=== PATIENT | male | born 1990 | race Caucasian/White ===

== ENCOUNTER 2016-12-13 00:08 | Emergency (ER) | payer OTHER ==
--- NOTE | 2016-12-13 01:06 | ED ORDER SUMMARY ---
..... Patient: CHUNG QURESHI OrderSheet [facility] VisitID: [id number] [place] [address] 26y, M Registration Date/Time: 12/13/2016 ORDER SHEET Weight: 105.2 kg (stated) Allergies: Penicillins GENERAL ORDERS: MEDICATION ORDERS: Clindamycin PO 300 mg (NOW) (01:04 12/13/2016 Rohit BARAJAS) (Ack 1:05 RMarsden R.N.) (1:11 RMarsden R.N.) IV FLUIDS: ORDER SHEET NOTES: [Electronically signed by Katey Leroy (02:06 12/13/2016)] [Electronically signed by Kelly Thayer MD (16:41 12/25/2016)] [Electronically locked/signed by Katey Leroy (02:06 12/13/2016)]
--- NOTE | 2016-12-13 01:06 | ED NURSING NOTES ---
Clinical Report - Nurses [facility] [place] [address] 12/13/2016 0:09 Patient: CHUNG QURESHI TRIAGE 00:17 12/13/16. BP: 160/84. HR: 98 (regular). RR: 18. O2 saturation: 99%. Temp: 98.3 F. Pain level now: 02/28. --00:18 McQuoid, Dafne, ER Tech1 Acuity: LEVEL 3. Chief Complaint: LEFT UPPER TOOTHACHE and SWELLING OF JAW / FACE. SEPSIS SCREEN: Sepsis Screen: negative. Infection suspected/documented. Heart rate greater than 90. AZUL COMA SCORE: Azul Coma Scale: 15- eyes open spontaneously (4); best verbal response- oriented x 4 (5); best motor response- obeys commands (6). --00:25 Katey Leroy. Weight: 105.2 kg stated. Height/Length: 70 inches Per Patient. BMI: 33.3. --00:17 McQuoid, Dafne, ER Tech1. Medications Ibuprofen Oral 800 mg, last dose 1899. --00:17 McQuoid, Dafne, ER Tech1. Allergies Penicillins. --00:17 McQuoid, Dafne, ER Tech1. Medication/allergy information source: the patient. --00:25 Katey Leroy. History Arrived by private vehicle. Historian: patient. Unaccompanied. This started today. ( Patient reports a broken tooth which was a root canal previously. He reports today he began having pain, facial swelling and lymph node pain. Patient reports no dental appointment scheduled yet.). He has no dental appointment scheduled. Reports enlarged lymph nodes. 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 PAST MEDICAL HX: Immunizations: up-to-date. SOCIAL HX: Never smoker. Occasional alcohol use. No drug use. No infectious disease exposure. ABUSE ASSESSMENT: No report of abuse. FALL RISK ASSESSMENT: Fall risk assessment completed. No fall risk identified. NUTRITIONAL RISK ASSESSMENT: The nutritional risk assessment revealed no deficiencies. FUNCTIONAL ASSESSMENT: Functional assessment: no impairments noted. LEARNING NEEDS ASSESSMENT: The learning needs assessment revealed no barriers. SKIN INTEGRITY ASSESSMENT: Skin integrity risk assessment completed. No skin integrity risk identified. --00: Katey Leroy. PROBLEMS: no known problems. ADDITIONAL SURGERIES: no known surgeries. Interventions ID band on patient. To treatment room. --00: Katey Leroy. PHYSICAL ASSESSMENT Ambulatory to room. GENERAL / NEURO / PSYCH: Alert. Oriented X 4. Appears in no acute distress. HEENT: Facial swelling present Left buccal area. Pharynx within normal limits. Dental decay. ( Broken tooth noted). Mucous membranes are pink. RESPIRATORY: Respirations not labored. SKIN: Skin is warm and dry. --00: Katey Leroy. NURSING PROGRESS NOTES Patient c/o left upper dental pain with swelling for 1 day. --00:19 McQuoid, Dafne, ER Tech1 Cold pack applied. Reassurance given to the patient. Two patient identifiers checked. Call light placed in reach. Side rails up x 1. Bed placed in lowest position. Brakes of bed on. Patient ready for evaluation- chart flagged and ED physician notified. --00: Katey Leroy 01:06 12/13/2016 Clindamycin PO Capsules 300 mg given. Allergies verified and confirmed 5 rights. --01:11 Tavia Valdez R.N. DISPOSITION / DISCHARGE 01:10 12/13/16. Discharge instructions provided and reviewed with the patient. Reviewed warnings. Reviewed medication(s). Treatments reviewed. Reviewed referrals. Patient verbalized understanding. Written instructions provided in Maori. The patient was discharged home. He left the Emergency Department ambulatory and via private vehicle. Patient driving. --01:10 Tavia Valdez R.N. 00:17 12/13/16. BP: 160/84. HR: 98 (regular). RR: 18. O2 saturation: 99%. Temp: 98.3 F. Pain level now: 02/28. --01:10 Tavia Valdez R.N. Departure time: :. --01:11 Tavia Valdez R.N. Locked/Released at 12/13/2016 2:06 by Katey Leroy,
--- NOTE | 2016-12-13 01:06 | ED NURSING NOTES ---
Clinical Report - Nurses [facility] [place] [address] 12/13/2016 0:09 Patient: CHUNG QURESHI TRIAGE 00:17 12/13/16. BP: 160/84. HR: 98 (regular). RR: 18. O2 saturation: 99%. Temp: 98.3 F. Pain level now: 02/28. --00:18 McQuoid, Dafne, ER Tech1 Acuity: LEVEL 3. Chief Complaint: LEFT UPPER TOOTHACHE and SWELLING OF JAW / FACE. SEPSIS SCREEN: Sepsis Screen: negative. Infection suspected/documented. Heart rate greater than 90. AZUL COMA SCORE: Azul Coma Scale: 15- eyes open spontaneously (4); best verbal response- oriented x 4 (5); best motor response- obeys commands (6). --00:25 Katey Leroy. Weight: 105.2 kg stated. Height/Length: 70 inches Per Patient. BMI: 33.3. --00:17 McQuoid, Dafne, ER Tech1. Medications Ibuprofen Oral 800 mg, last dose 1899. --00:17 McQuoid, Dafne, ER Tech1. Allergies Penicillins. --00:17 McQuoid, Dafne, ER Tech1. Medication/allergy information source: the patient. --00:25 Katey Leroy. History Arrived by private vehicle. Historian: patient. Unaccompanied. This started today. ( Patient reports a broken tooth which was a root canal previously. He reports today he began having pain, facial swelling and lymph node pain. Patient reports no dental appointment scheduled yet.). He has no dental appointment scheduled. Reports enlarged lymph nodes. 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 PAST MEDICAL HX: Immunizations: up-to-date. SOCIAL HX: Never smoker. Occasional alcohol use. No drug use. No infectious disease exposure. ABUSE ASSESSMENT: No report of abuse. FALL RISK ASSESSMENT: Fall risk assessment completed. No fall risk identified. NUTRITIONAL RISK ASSESSMENT: The nutritional risk assessment revealed no deficiencies. FUNCTIONAL ASSESSMENT: Functional assessment: no impairments noted. LEARNING NEEDS ASSESSMENT: The learning needs assessment revealed no barriers. SKIN INTEGRITY ASSESSMENT: Skin integrity risk assessment completed. No skin integrity risk identified. --00: Katey Leroy. PROBLEMS: no known problems. ADDITIONAL SURGERIES: no known surgeries. Interventions ID band on patient. To treatment room. --00: Katey Leroy. PHYSICAL ASSESSMENT Ambulatory to room. GENERAL / NEURO / PSYCH: Alert. Oriented X 4. Appears in no acute distress. HEENT: Facial swelling present Left buccal area. Pharynx within normal limits. Dental decay. ( Broken tooth noted). Mucous membranes are pink. RESPIRATORY: Respirations not labored. SKIN: Skin is warm and dry. --00: Katey Leroy. NURSING PROGRESS NOTES Patient c/o left upper dental pain with swelling for 1 day. --00:19 McQuoid, Dafne, ER Tech1 Cold pack applied. Reassurance given to the patient. Two patient identifiers checked. Call light placed in reach. Side rails up x 1. Bed placed in lowest position. Brakes of bed on. Patient ready for evaluation- chart flagged and ED physician notified. --00: Katey Leroy 01:06 12/13/2016 Clindamycin PO Capsules 300 mg given. Allergies verified and confirmed 5 rights. --01:11 Tavia Valdez R.N. DISPOSITION / DISCHARGE 01:10 12/13/16. Discharge instructions provided and reviewed with the patient. Reviewed warnings. Reviewed medication(s). Treatments reviewed. Reviewed referrals. Patient verbalized understanding. Written instructions provided in Polish. The patient was discharged home. He left the Emergency Department ambulatory and via private vehicle. Patient driving. --01:10 Tavia Valdez R.N. 00:17 12/13/16. BP: 160/84. HR: 98 (regular). RR: 18. O2 saturation: 99%. Temp: 98.3 F. Pain level now: 02/28. --01:10 Tavia Valdez R.N. Departure time: :. --01:11 Tavia Valdez R.N. Locked/Released at 12/13/2016 2:06 by Katey Leroy,
--- NOTE | 2016-12-13 01:06 | ED CLINICAL REPORT ---
Clinical Report - Physicians/Mid Levels [facility] [address] [place] [address] 12/13/2016 0:09 Patient: CHUNG QURESHI Time Seen: 00:20. Arrived- By private vehicle. Historian- patient. HISTORY OF PRESENT ILLNESS Chief Complaint: DENTAL PAIN. This started today and is still present. Pain described as moderate. No sore throat, mouth sores, nasal discharge or congestion or ear pain. No jaw pain. He has had toothache and swelling of the face. Similar symptoms previously: Recent medical care: Not recently seen/assessed. REVIEW OF SYSTEMS No fever, eye discomfort, cough, difficulty breathing or chest pain. No nausea, diarrhea, abdominal pain, difficulty with urination or headache. No fainting episodes, joint pain, skin rash, enlarged lymph nodes or vomiting. All systems otherwise negative, except as recorded above. PAST HISTORY Problems: no known problems. Additional Surgeries: no known surgeries. Medications: Ibuprofen Oral 800 mg, last dose 1900. Allergies: Penicillins. SOCIAL HISTORY Never smoker. Occasional alcohol use. No drug use. ADDITIONAL NOTES The nursing notes have been reviewed. PHYSICAL EXAM Vital Signs: 12/13/2016 00:17 BP: 160/84. HR: 98. RR: 18. O2 saturation: 99%. Temp: 98.3 F. Pain level now: 8/10. Have been reviewed. Appearance: Alert. No acute distress. Head: Moderate swelling of the left maxilla. No facial erythema. No mandibular swelling. Eyes: Pupils equal, round and reactive to light. Conjunctivae and eyelids normal. ENT: Dental decay. Nose normal. Lips normal. (L maxillary gingival tenderness.). Neck: Normal inspection. Trachea midline. No adenopathy. Neck supple. Respiratory: No respiratory distress. Skin: Normal skin color. No rash. Normal skin turgor. Extremities: Extremities exhibit normal ROM. Neuro: (Grossly intact.). LABS, X-RAYS, AND EKG Pulse Oximetry: 12/13/2016 00:17 O2 saturation: 99%. (FIO2 - room air). Interpretation: normal. PROGRESS AND PROCEDURES Course of Care: Pt was given a dose of clindamycin, and we discussed the importance of dental f/u. Patient counseled in person regarding the patient's stable condition, diagnosis and need for follow-up. Concerns were addressed. Old medical records reviewed. Disposition: Discharged. Condition: stable. CLINICAL IMPRESSION Alveolar dental abscess. No Michael's angina. INSTRUCTIONS Drink plenty of fluids. Warnings: Further evaluation is necessary. GENERAL WARNINGS: Return or contact your physician immediately if your condition worsens or changes unexpectedly, if not improving as expected, or if other problems arise. Your Current Medications: CONTINUE TAKING THE FOLLOWING MEDICATIONS: Ibuprofen Oral : 800 mg, Last: 1900. Prescription Medications: Hydrocodone/APAP 5mg / 325mg: take 1-2 orally every 6 hours as needed for pain. Dispense twenty (20). No refill. Cleocin 300 mg: take 1 capsule orally every 6 hours for 10 days. No refill. Follow-up: Follow up with a dentist. Call for the next available appointment. Understanding of the discharge instructions verbalized by patient. (Electronically signed by Kelly Thayer MD 12/25/2016 16:41)
--- NOTE | 2016-12-13 01:06 | ED CLINICAL REPORT ---
Clinical Report - Physicians/Mid Levels [facility] [address] [place] [address] 12/13/2016 0:09 Patient: CHUNG QURESHI Time Seen: 00:20. Arrived- By private vehicle. Historian- patient. HISTORY OF PRESENT ILLNESS Chief Complaint: DENTAL PAIN. This started today and is still present. Pain described as moderate. No sore throat, mouth sores, nasal discharge or congestion or ear pain. No jaw pain. He has had toothache and swelling of the face. Similar symptoms previously: Recent medical care: Not recently seen/assessed. REVIEW OF SYSTEMS No fever, eye discomfort, cough, difficulty breathing or chest pain. No nausea, diarrhea, abdominal pain, difficulty with urination or headache. No fainting episodes, joint pain, skin rash, enlarged lymph nodes or vomiting. All systems otherwise negative, except as recorded above. PAST HISTORY Problems: no known problems. Additional Surgeries: no known surgeries. Medications: Ibuprofen Oral 800 mg, last dose 1900. Allergies: Penicillins. SOCIAL HISTORY Never smoker. Occasional alcohol use. No drug use. ADDITIONAL NOTES The nursing notes have been reviewed. PHYSICAL EXAM Vital Signs: 12/13/2016 00:17 BP: 160/84. HR: 98. RR: 18. O2 saturation: 99%. Temp: 98.3 F. Pain level now: 8/10. Have been reviewed. Appearance: Alert. No acute distress. Head: Moderate swelling of the left maxilla. No facial erythema. No mandibular swelling. Eyes: Pupils equal, round and reactive to light. Conjunctivae and eyelids normal. ENT: Dental decay. Nose normal. Lips normal. (L maxillary gingival tenderness.). Neck: Normal inspection. Trachea midline. No adenopathy. Neck supple. Respiratory: No respiratory distress. Skin: Normal skin color. No rash. Normal skin turgor. Extremities: Extremities exhibit normal ROM. Neuro: (Grossly intact.). LABS, X-RAYS, AND EKG Pulse Oximetry: 12/13/2016 00:17 O2 saturation: 99%. (FIO2 - room air). Interpretation: normal. PROGRESS AND PROCEDURES Course of Care: Pt was given a dose of clindamycin, and we discussed the importance of dental f/u. Patient counseled in person regarding the patient's stable condition, diagnosis and need for follow-up. Concerns were addressed. Old medical records reviewed. Disposition: Discharged. Condition: stable. CLINICAL IMPRESSION Alveolar dental abscess. No Michael's angina. INSTRUCTIONS Drink plenty of fluids. Warnings: Further evaluation is necessary. GENERAL WARNINGS: Return or contact your physician immediately if your condition worsens or changes unexpectedly, if not improving as expected, or if other problems arise. Your Current Medications: CONTINUE TAKING THE FOLLOWING MEDICATIONS: Ibuprofen Oral : 800 mg, Last: 1900. Prescription Medications: Hydrocodone/APAP 5mg / 325mg: take 1-2 orally every 6 hours as needed for pain. Dispense twenty (20). No refill. Cleocin 300 mg: take 1 capsule orally every 6 hours for 10 days. No refill. Follow-up: Follow up with a dentist. Call for the next available appointment. Understanding of the discharge instructions verbalized by patient. (Electronically signed by Kelly Thayer MD 12/25/2016 16:41)
--- NOTE | 2016-12-13 01:06 | ED ORDER SUMMARY ---
..... Patient: CHUNG QURESHI OrderSheet [facility] VisitID: [id number] [place] [address] 26y, M Registration Date/Time: 12/13/2016 ORDER SHEET Weight: 105.2 kg (stated) Allergies: Penicillins GENERAL ORDERS: MEDICATION ORDERS: Clindamycin PO 300 mg (NOW) (01:04 12/13/2016 Rohit BARAJAS) (Ack 1:05 RMarsden R.N.) (1:11 RMarsden R.N.) IV FLUIDS: ORDER SHEET NOTES: [Electronically signed by Katey Leroy (02:06 12/13/2016)] [Electronically signed by Kelly Thayer MD (16:41 12/25/2016)] [Electronically locked/signed by Katey Leroy (02:06 12/13/2016)]
--- NOTE | 2016-12-25 16:42 | ED MAR SUMMARY ---
..... Medication Administration Record [facility] [address] [place] [address] Patient: CHUNG QURESHI Visit ID: [id number] 26y, M Weight: 105.2 kg Height/Length: 70 in BMI: 33.3 ALLERGIES: Penicillins Given 01:06 12/13/2016 Tavia Valdez R.N. Medication Administered: CLINDAMYCIN [PO], Dose: 300 mg Capsules PO. Medication Ordered: Clindamycin PO 300 mg (NOW).
--- NOTE | 2016-12-25 16:42 | ED DISCHARGE INSTRUCTIONS ---
Patient: CHUNG QURESHI General Instructions [facility] VisitID: [id number] [place] [address] 26y, M Registration Date/Time: 12/13/2016 Alveolar dental abscess. No Michael's angina. INSTRUCTIONS Drink plenty of fluids. Warnings: Further evaluation is necessary. GENERAL WARNINGS: Return or contact your physician immediately if your condition worsens or changes unexpectedly, if not improving as expected, or if other problems arise. Your Current Medications: CONTINUE TAKING THE FOLLOWING MEDICATIONS: Ibuprofen Oral : 800 mg, Last: 1900. Prescription Medications: Hydrocodone/APAP 5mg / 325mg: take 1-2 orally every 6 hours as needed for pain. Dispense twenty (20). No refill. Cleocin 300 mg: take 1 capsule orally every 6 hours for 10 days. No refill. Follow-up: Follow up with a dentist. Call for the next available appointment. Understanding of the discharge instructions verbalized by patient. ADDITIONAL INFORMATION Dental Abscess A dental abscess is an infection of the tooth socket. It often starts with a crack or cavity in the tooth. A pocket of pus forms between the tooth and the bone. The infection causes pain and swelling of the gum, cheek or jaw. The pain is often made worse by drinking hot or cold fluids, or biting on hard foods. Pain may be felt in the facial sinus or in the ear. A severe infection can interfere with swallowing and breathing. In the emergency department or clinic, you will be started on an antibiotic. However, final treatment requires drainage of the pus. This can be done by removing the tooth or performing a root canal. A root canal is done by an oral surgeon and involves drilling an opening in the tooth to drain the pus. After the infection has healed, a crown is placed over the tooth. Home care The following guidelines will help you care for your abscess at home: Avoid hot and cold foods and liquids since your tooth may be sensitive to temperature changes. If your tooth is chipped or cracked, or if there is a large open cavity, applyoil of cloves(available kxlz-wcw-engvujl in drug stores) directly to the tooth to reduce pain. Some pharmacies carry an smvo-pht-yrtzede "toothache kit". This contains oil of cloves and a paste, which can be applied over the exposed tooth to decrease sensitivity. Apply an ice pack (ice cubes in a plastic bag, wrapped in a towel) over the injured area for 20 minutes every 12 hours the first day for pain relief. Continue this 34 times a day until the pain and swelling goes away. You may use acetaminophen or ibuprofen to control pain, unless another medicine was prescribed. If you have chronic liver or kidney disease or ever had a stomach ulcer or GI bleeding, talk with your doctor before using these medicines. An antibiotic will be prescribed. Take it as directed until completed, even if you are feeling better sooner. Follow-up care Follow up as directed with a dentist or oral surgeon. Even though your pain may improve with the treatment given today, only a dentist or oral surgeon can provide full treatment for this problem. When to seek medical care Get prompt medical attention or contact your doctor if any of the following occur: Your face or eyelid becomes swollen or red Pain worsens or spreads to the neck Fever over 100.4F (38.0C) Unusual drowsiness; headache or stiff neck; weakness, or fainting Pus drains from the gum or tooth Difficulty talking, swallowing or breathing Unable to open your mouth wide You have been given the following additional information: Tooth Abscess (Electronically signed by Kelly Thayer MD 12/25/2016 16:41)
--- NOTE | 2016-12-25 16:42 | ED DISCHARGE INSTRUCTIONS ---
Patient: CHUNG QURESHI General Instructions [facility] VisitID: [id number] [place] [address] 26y, M Registration Date/Time: 12/13/2016 Alveolar dental abscess. No Michael's angina. INSTRUCTIONS Drink plenty of fluids. Warnings: Further evaluation is necessary. GENERAL WARNINGS: Return or contact your physician immediately if your condition worsens or changes unexpectedly, if not improving as expected, or if other problems arise. Your Current Medications: CONTINUE TAKING THE FOLLOWING MEDICATIONS: Ibuprofen Oral : 800 mg, Last: 1900. Prescription Medications: Hydrocodone/APAP 5mg / 325mg: take 1-2 orally every 6 hours as needed for pain. Dispense twenty (20). No refill. Cleocin 300 mg: take 1 capsule orally every 6 hours for 10 days. No refill. Follow-up: Follow up with a dentist. Call for the next available appointment. Understanding of the discharge instructions verbalized by patient. ADDITIONAL INFORMATION Dental Abscess A dental abscess is an infection of the tooth socket. It often starts with a crack or cavity in the tooth. A pocket of pus forms between the tooth and the bone. The infection causes pain and swelling of the gum, cheek or jaw. The pain is often made worse by drinking hot or cold fluids, or biting on hard foods. Pain may be felt in the facial sinus or in the ear. A severe infection can interfere with swallowing and breathing. In the emergency department or clinic, you will be started on an antibiotic. However, final treatment requires drainage of the pus. This can be done by removing the tooth or performing a root canal. A root canal is done by an oral surgeon and involves drilling an opening in the tooth to drain the pus. After the infection has healed, a crown is placed over the tooth. Home care The following guidelines will help you care for your abscess at home: Avoid hot and cold foods and liquids since your tooth may be sensitive to temperature changes. If your tooth is chipped or cracked, or if there is a large open cavity, applyoil of cloves(available rjiz-uyi-rtmoevg in drug stores) directly to the tooth to reduce pain. Some pharmacies carry an xqyl-bbw-zubdlfl "toothache kit". This contains oil of cloves and a paste, which can be applied over the exposed tooth to decrease sensitivity. Apply an ice pack (ice cubes in a plastic bag, wrapped in a towel) over the injured area for 20 minutes every 12 hours the first day for pain relief. Continue this 34 times a day until the pain and swelling goes away. You may use acetaminophen or ibuprofen to control pain, unless another medicine was prescribed. If you have chronic liver or kidney disease or ever had a stomach ulcer or GI bleeding, talk with your doctor before using these medicines. An antibiotic will be prescribed. Take it as directed until completed, even if you are feeling better sooner. Follow-up care Follow up as directed with a dentist or oral surgeon. Even though your pain may improve with the treatment given today, only a dentist or oral surgeon can provide full treatment for this problem. When to seek medical care Get prompt medical attention or contact your doctor if any of the following occur: Your face or eyelid becomes swollen or red Pain worsens or spreads to the neck Fever over 100.4F (38.0C) Unusual drowsiness; headache or stiff neck; weakness, or fainting Pus drains from the gum or tooth Difficulty talking, swallowing or breathing Unable to open your mouth wide You have been given the following additional information: Tooth Abscess (Electronically signed by Kelly Thayer MD 12/25/2016 16:41)
--- NOTE | 2016-12-25 16:42 | ED MED RECONCILIATION SUMMARY ---
Patient: CHUNG QURESHI Medication Reconciliation Report [facility] VisitID: [id number] [address] [place] [address] 26y, M Registration Date/Time: 12/13/2016 Weight: 105.2 kg Height/Length: 70 in. BMI: 33.3 ALLERGIES: Penicillins The patient's Home Medications are listed below: CONTINUE TAKING THE FOLLOWING MEDICATIONS: Ibuprofen Oral 800 mg, last dose: 1900 The source(s) of the original Home Medication information: patient The following Medications were given to the patient in the Emergency Department: Clindamycin [PO] PO 300 mg, administered: 12/13/2016 1:06:00 AM The following Medications were prescribed to the patient: Hydrocodone/APAP 5mg / 325mg: take 1-2 orally every 6 hours as needed for pain. Dispense twenty (20). No refill. -- Kelly Thayer MD Cleocin 300 mg: take 1 capsule orally every 6 hours for 10 days. No refill. -- Kelly Thayer MD
--- NOTE | 2016-12-25 16:42 | ED MAR SUMMARY ---
..... Medication Administration Record [facility] [address] [place] [address] Patient: CHUNG QURESHI Visit ID: [id number] 26y, M Weight: 105.2 kg Height/Length: 70 in BMI: 33.3 ALLERGIES: Penicillins Given 01:06 12/13/2016 Tavia Valdez R.N. Medication Administered: CLINDAMYCIN [PO], Dose: 300 mg Capsules PO. Medication Ordered: Clindamycin PO 300 mg (NOW).
--- NOTE | 2016-12-25 16:42 | ED MED RECONCILIATION SUMMARY ---
Patient: CHUNG QURESHI Medication Reconciliation Report [facility] VisitID: [id number] [address] [place] [address] 26y, M Registration Date/Time: 12/13/2016 Weight: 105.2 kg Height/Length: 70 in. BMI: 33.3 ALLERGIES: Penicillins The patient's Home Medications are listed below: CONTINUE TAKING THE FOLLOWING MEDICATIONS: Ibuprofen Oral 800 mg, last dose: 1900 The source(s) of the original Home Medication information: patient The following Medications were given to the patient in the Emergency Department: Clindamycin [PO] PO 300 mg, administered: 12/13/2016 1:06:00 AM The following Medications were prescribed to the patient: Hydrocodone/APAP 5mg / 325mg: take 1-2 orally every 6 hours as needed for pain. Dispense twenty (20). No refill. -- Kelly Thayre MD Cleocin 300 mg: take 1 capsule orally every 6 hours for 10 days. No refill. -- Kelly Thayer MD
== END 2016-12-13 01:10 | disposition home or self-care (01) ==
LOC: ED SRH 00:08
DX: K04.7 Periapical abscess without sinus (principal); Z79.1 Long term (current) use of non-steroidal anti-inflammatories (NSAID); Z88.0 Allergy status to penicillin